=== PATIENT | female | born 1985 | race African-American/Black ===

== ENCOUNTER 2019-06-20 10:39 | Emergency (ER) | payer OTHER ==
[~2019-06-20] VITALS: Ht 180.3 cm; Wt 56.0 kg
[2019-06-20 11:20] VITALS: BP 101/57
[2019-06-20] MEDS ORDERED: AMOXICILLIN/POTASSIUM CLAVULANATE 875/125MG TAB PO ONE (12:15)
== END 2019-06-20 13:21 | disposition home or self-care (01) ==
LOC: ER 10:39
DX: S51.851A Open bite of right forearm, initial encounter (principal); L03.113 Cellulitis of right upper limb; J45.909 Unspecified asthma, uncomplicated; F12.10 Cannabis abuse, uncomplicated; F15.10 Other stimulant abuse, uncomplicated; Z88.8 Allergy status to other drugs, medicaments and biological substances; Z98.890 Other specified postprocedural states; Y04.1XXA Assault by human bite, initial encounter; Y93.89 Activity, other specified; Y92.89 Other specified places as the place of occurrence of the external cause
CPT/HCPCS: 99283

== ENCOUNTER 2022-06-17 10:33 | Emergency (ER) | payer OTHER ==
[~2022-06-17] VITALS: Ht 180.3 cm; Wt 51.0 kg
[~2022-06-17 10:33] MED LIST: ARIP15TA14 MT; HYDR-459 MT; LITHTAB MT; PROP20TA7 MT; QUET200T MT
[2022-06-17 11:05] VITALS: BP 98/58
[2022-06-17] MEDS ORDERED: ACETAMINOPHEN 325MG TABLET PO STA (12:22)
[2022-06-17] MEDS ORDERED: NAPR-1176 PO (14:50)
== END 2022-06-17 15:10 | disposition left against medical advice (07) ==
LOC: ER 10:33
DX: S00.03XA Contusion of scalp, initial encounter (principal); S10.83XA Contusion of other specified part of neck, initial encounter; Y08.89XA Assault by other specified means, initial encounter; Y93.89 Activity, other specified; Y92.89 Other specified places as the place of occurrence of the external cause; Y99.8 Other external cause status; M54.50 Low back pain, unspecified; J45.909 Unspecified asthma, uncomplicated; Z98.890 Other specified postprocedural states; Z79.899 Other long term (current) drug therapy; M79.602 Pain in left arm
CPT/HCPCS: 70110; 73090; 99284

== ENCOUNTER 2022-07-28 13:32 | Emergency (ER) | payer OTHER ==
[~2022-07-28] VITALS: Ht 177.8 cm; Wt 65.0 kg
[~2022-07-28 13:32] MED LIST changes: +NAPR-1176 PO
[2022-07-28] MEDS ORDERED: ACETAMINOPHEN 325MG TABLET PO ONE (17:30)
[2022-07-28 17:59] LABS: CLARITY URINE CLOUDY (CLEAR); COLOR URINE YELLOW (YELLOW); KETONES URINE NEGATIVE (NEGATIVE); LEUKOCYTE ESTERASE URINE NEGATIVE (NEGATIVE); NITRITE URINE NEGATIVE (NEGATIVE); OCCULT BLOOD URINE NEGATIVE (NEGATIVE); PROTEIN URINE NEGATIVE (NEGATIVE); SPECIFIC GRAVITY URINE 1.023 (1.005-1.030)
[2022-07-28] MEDS ORDERED: ACET-2708 MT (18:06)
[2022-07-28] MEDS ORDERED: HYDR25SU37 RC (18:06)
[2022-07-28 18:33] VITALS: BP 142/89
== END 2022-07-28 18:34 | disposition home or self-care (01) ==
LOC: ER 13:32
DX: K60.2 Anal fissure, unspecified (principal); R31.9 Hematuria, unspecified; M19.90 Unspecified osteoarthritis, unspecified site; J45.909 Unspecified asthma, uncomplicated; Z88.8 Allergy status to other drugs, medicaments and biological substances
CPT/HCPCS: 81003; 81025; 99283

== ENCOUNTER 2022-08-11 23:15 | Emergency (ER) | payer OTHER ==
[~2022-08-11] VITALS: Ht 177.8 cm; Wt 54.0 kg
[~2022-08-11 23:15] MED LIST changes: +ACET-2708 MT; +HYDR25SU37 RC
[2022-08-12] MEDS ORDERED: SODIUM CHLORIDE 0.9% 1,000 ML IV ONE (01:15)
[2022-08-12] MEDS ORDERED: LORAZEPAM 2MG/ML CPJ IV ONE (01:15)
[2022-08-12 01:50] LABS: BASOPHILS % 0.5 % (0.0-2.0); EOSINOPHILS % 3.5 % (0.0-5.0); HEMATOCRIT. 33.4 % (36.0-48.0); HEMOGLOBIN. 10.8 g/dL (12.0-16.0); LYMPHOCYTES % 44.6 % (20.0-50.0); MEAN CORPUSCULAR HEMOGLOBIN 27.1 pg (28.0-32.0); MEAN CORPUSCULAR VOLUME 83.6 fL (81.0-99.0); MEAN PLATELET VOLUME 6.7 fl (7.4-10.4); MONOCYTES % 7.1 % (2.0-8.0); NEUTROPHILS % 44.3 % (40.0-76.0); PLATELET 231 x1000/uL (130-400); RED CELL DISTRIBUTION WIDTH 15.9 % (11.6-14.6)
[2022-08-12 01:56] LABS: CHLORIDE 106 mEq/L (98-107)
[2022-08-12 02:04] LABS: ETHANOL BLOOD < 10 mg/dL
[2022-08-12 02:38] LABS: *BARBITURATES SCREEN URINE NEGATIVE (NEGATIVE); *BENZODIAZEPINES SCREEN URINE NEGATIVE (NEGATIVE); *COCAINE SCREEN URINE NEGATIVE (NEGATIVE); CANNABINOID URINE SCREEN NEGATIVE (NEGATIVE); METHADONE URINE SCREEN NEGATIVE (NEGATIVE); OPIATES URINE SCREEN NEGATIVE (NEGATIVE); PHENCYCLIDINE URINE SCREEN NEGATIVE (NEGATIVE)
[2022-08-12 02:59] LABS: CLARITY URINE CLEAR (CLEAR); COLOR URINE YELLOW (YELLOW); KETONES URINE NEGATIVE (NEGATIVE); OCCULT BLOOD URINE NEGATIVE (NEGATIVE); PROTEIN URINE TRACE (NEGATIVE)
[2022-08-12 03:00] LABS: LEUKOCYTE ESTERASE URINE NEGATIVE (NEGATIVE); NITRITE URINE NEGATIVE (NEGATIVE); UROBILINOGEN URINE 0.2 E.U./dL (0.2-1.0)
[2022-08-12 03:13] LABS: *AMPHETAMINES SCREEN URINE PRESUMTIVE POSITIVE (NEGATIVE)
[2022-08-12 06:07] VITALS: BP 111/62
== END 2022-08-12 06:10 | disposition home or self-care (01) ==
LOC: ER 23:15
DX: F19.129 Other psychoactive substance abuse with intoxication, unspecified (principal); M25.512 Pain in left shoulder; Z79.899 Other long term (current) drug therapy
CPT/HCPCS: 36415; 80053; 80305; 80307; 80320; 80329; 81003; 81025; 82140; 85025; 96361; 96374; 99284; J2060; J7030; G0480

== ENCOUNTER 2023-03-30 21:46 | Emergency (ER) | payer OTHER ==
[~2023-03-30] VITALS: Ht 175.3 cm; Wt 57.5 kg
[2023-03-30 22:05] VITALS: BP 102/73; PULSE 100; TEMP 98.6; O2SAT 99
[2023-03-31 01:45] LABS: BASOPHILS % 0.8 % (0.0-2.0); EOSINOPHILS % 3.4 % (0.0-5.0); HEMATOCRIT. 33.1 % (36.0-48.0); HEMOGLOBIN. 10.9 g/dL (12.0-16.0); LYMPHOCYTES % 38.9 % (20.0-50.0); MEAN CORPUSCULAR HEMOGLOBIN 27.5 pg (28.0-32.0); MEAN CORPUSCULAR VOLUME 83.9 fL (81.0-99.0); MEAN PLATELET VOLUME 6.2 fl (7.4-10.4); MONOCYTES % 8.8 % (2.0-8.0); NEUTROPHILS % 48.1 % (40.0-76.0); PLATELET 219 x1000/uL (130-400); RED BLOOD CELL COUNT 3.94 mill/uL (4.2-5.4); RED CELL DISTRIBUTION WIDTH 14.9 % (11.6-14.6)
[2023-03-31 01:50] LABS: CHLORIDE 113 mEq/L (98-107)
[2023-03-31 01:55] LABS: ETHANOL BLOOD < 10 mg/dL (-10)
[2023-03-31 02:00] LABS: HCG SCREEN NEGATIVE
== END 2023-03-31 01:55 | disposition left against medical advice (07) ==
LOC: ER 21:46
DX: Z04.41 Encounter for examination and observation following alleged adult rape (principal); F19.90 Other psychoactive substance use, unspecified, uncomplicated; Z88.8 Allergy status to other drugs, medicaments and biological substances; Z79.899 Other long term (current) drug therapy
CPT/HCPCS: 36415; 80048; 80307; 80320; 80329; 84703; 85025; 99283; G0480

== ENCOUNTER 2024-05-21 11:14 | Emergency (ER) | payer MEDICAID, OTHER ==
[~2024-05-21] VITALS: Ht 177.8 cm; Wt 65.0 kg
[~2024-05-21 11:14] MED LIST changes: +B50 MT; +DIPH25CA83 MT; +SULF1TAB48 MT
[2024-05-21 11:27] VITALS: BP 91/55; PULSE 89; RESP 20; TEMP 98.2; O2SAT 100
[2024-05-21 16:14] LABS: CLARITY URINE CLEAR (CLEAR); COLOR URINE YELLOW (YELLOW); GLUCOSE URINE NEGATIVE (NEGATIVE); KETONES URINE TRACE (NEGATIVE); LEUKOCYTE ESTERASE URINE NEGATIVE (NEGATIVE); NITRITE URINE NEGATIVE (NEGATIVE); OCCULT BLOOD URINE NEGATIVE (NEGATIVE); PROTEIN URINE NEGATIVE (NEGATIVE); SPECIFIC GRAVITY URINE 1.006 (1.005-1.030)
[2024-05-21] MEDS ORDERED: FLUC150T46 MT (16:29)
[2024-05-21] MEDS ORDERED: METR70GE5 VG (16:29)
[2024-05-21] MEDS ORDERED: DOXY-456 MT (16:46)
[2024-05-21] MEDS: CEFTRIAXONE SODIUM 500MG VIAL IM ONE (17:45)
[2024-05-23 19:09] LABS: CHLAMYDIA TRACHOMATIS NAA Negative (Negative); NEISSERIA GONORRHOEAE NAA Negative (Negative)
== END 2024-05-21 17:53 | disposition home or self-care (01) ==
LOC: ER 11:17
DX: N76.0 Acute vaginitis (principal); I10 Essential (primary) hypertension; Z88.7 Allergy status to serum and vaccine; Z79.899 Other long term (current) drug therapy; Z86.59 Personal history of other mental and behavioral disorders
CPT/HCPCS: 87491; 87591; 81003; 81025; 96372; 99283; J0696; Z7610 ×3